=== PATIENT | female | born 1950 | race Caucasian/White ===

== ENCOUNTER 2016-12-03 12:30 | Emergency (ER) | payer BC ==
--- NOTE | 2016-12-03 13:36 | RAD ---
INDICATION: Intracranial injury COMPARISON: CT brain June 26, 2016 TECHNIQUE: Noncontrast axial source images were acquired from the skull base to the vertex. FINDINGS: Ventricles/sulci: The ventricles and cisterns are normal in size and configuration for age. Brain parenchyma: There is no focal parenchymal finding, evidence of intracranial mass, or intracranial mass effect. Intracranial hemorrhage:None. Extra-axial spaces: There are no abnormal extra axial fluid collections or evidence of extra-axial mass. Calvarium: There is no calvarial fracture or other calvarial abnormality. Scalp: There is no evidence of scalp or extracalvarial soft tissue abnormality. Paranasal sinuses/mastoid: The paranasal sinuses and mastoid air cells are clear. Other: None. IMPRESSION: No acute intracranial findings or interval changes.
--- NOTE | 2016-12-03 13:38 | RAD ---
HISTORY: Syncope, trauma COMPARISONS: CTA dated June 26, 2016 TECHNIQUE: Multiple contiguous axial CT scans were obtained of the cervical spine without intravenous contrast, with coronal and sagittal multiplanar reformations. FINDINGS: BRAIN: The visualized brain is unremarkable CENTRAL CANAL: Evaluation of the central canal is limited on CT technique; however, there is no obvious canalicular mass or epidural hemorrhage. ALIGNMENT: There is straightening of the cervical lordosis. VERTEBRAL BODIES: There is multilevel anterolateral marginal osteophyte reformation most now pronounced at C5-C6 and C6-C7. There is no displaced fracture or dislocation. JOINTS: There is mild diffuse uncovertebral and facet hypertrophic change. MUSCULATURE: Unremarkable INTERVERTEBRAL DISCS: There is diffuse loss of intervertebral disc height. AXIAL IMAGES: There is moderate left neural foraminal narrowing at C6-C7. There is no osseous central canal stenosis. SOFT TISSUES: The visualized soft tissues of the neck are unremarkable. The prevertebral fat stripe is preserved. OTHER: None. IMPRESSION: 1. STRAIGHTENING THE CERVICAL LORDOSIS. 2. DEGENERATIVE DISC DISEASE AND OSTEOARTHRITIS. 3. NO ACUTE OSSEOUS INJURY TO THE CERVICAL SPINE
[2016-12-03 15:28] LABS: Hematocrit 43 % (35-47); Hemoglobin 14.2 g/dl (12.0-16.0); Mean Corpuscular HGB Conc 33 g/dl (31-36); Mean Corpuscular Hemoglobin 30 pg (27-31); Mean Corpuscular Volume 91 fL (80-97); Mean Platelet Volume 8 um3 (7.4-10.4); Red Blood Count 4.75 10^6/ul (4.0-5.4); Red Cell Distribution Width 14 % (10.5-15); White Blood Count 8.2 10^3/ul (3.5-10.8)
[2016-12-03 15:42] LABS: Albumin 4.1 g/dL (3.2-5.2); BUN/Creatinine Ratio 14.3 (8-20); Calcium 9.4 mg/dL (8.6-10.3); EGFR African American 79.8 (>60); Globulin 2.5 g/dL (2-4); Potassium 3.8 mmol/L (3.5-5.0); Total Bilirubin 0.3 mg/dL (0.2-1.0); Total Protein 6.6 g/dL (6.4-8.9)
[2016-12-03 16:12] VITALS: BP 99/84
[2016-12-03 17:04] LABS: Urine Bacteria Absent (Absent); Urine Bilirubin Negative (Negative); Urine Glucose Negative (Negative); Urine Nitrite Negative (Negative)
--- NOTE | 2016-12-03 19:02 | ED ---
Da Abbott Adam, scribed for Marija Burks MD on 12/03/16 at 1403 . Syncope/Near Syncope - HPI Summary HPI Summary: Pt is a 66 year old female presenting after an episode of syncope. The pt was on the 2nd floor of a building for an appt with her therapist and she remembers standing at the top of the stairs as she was leaving. The next thing she remembers is being at the bottom of the stairs. She has no memory of falling. She denies any symptoms prior to the episode except that she remembers having some difficulty seeing during the appt because of a "glare." Pt c/o RODRÍGUEZ, generalized myalgia, and feeling "spacey and out of it." She denies any difficulty finding words or confusion about where she is. PMHx of chronic colitis and TIA x2 (involving aphasia and feeling unstable on her feet). She is on Plavix. Negative tobacco/alcohol/drug use. FMHx of HTN, HLD, and [place]. - History Of Current Complaint Chief Complaint: EDSyncope Time Seen by Provider: 12/03/16 13:55 Hx Obtained From: Patient Onset/Duration: Sudden Onset, Lasting Minutes, Resolved Timing: Intermittent Episode Lasting - Minutes Context: Unwitnessed Activity At Onset: Exertion - Beginning to walk down stairs Associated Head Trauma: Yes Aggravating Factor(s): Other - Unknown Alleviating Factor(s): Nothing Associated Signs And Symptoms: AMS - "Out of it", Headache - Allergies/Home Medications Allergies/Adverse Reactions: Allergies Allergy/AdvReac Type Severity Reaction Status Date / Time Cephalosporins Allergy COLITIS Verified 11/04/13 05:46 Penicillins [PCN] Allergy Unknown Verified 06/26/16 13:07 Reaction Details Sulfa Antibiotics Allergy Unknown Verified 06/26/16 13:07 Reaction Details Sulfa Drugs Allergy Hives Verified 11/04/13 05:46 PMH/Surg Hx/FS Hx/Imm Hx Endocrine/Hematology History: Reports: Hx Thyroid Disease Cardiovascular History: Reports: Hx Hypercholesterolemia, Hx Hypertension - ON MEDICATION FOR, Other Cardiovascular Problems/Disorders - REYNAUDS DISEASE Denies: Hx Angina, Hx Pacemaker/ICD Respiratory History: Reports: Hx Sleep Apnea GI History: Reports: Other GI Disorders - Chronic colitis Comment Only: Hx Gastroesophageal Reflux Disease - acid reflux Musculoskeletal History: Reports: Hx Arthritis - HANDS, FEET, KNEES, Hx Bursitis - HIPS AND SHOULDERS, Hx Fibromyalgia Sensory History: Reports: Hx Contacts or Glasses - GLASSES, Hx Glaucoma Denies: Hx Hearing Aid Opthamlomology History: Reports: Hx Contacts or Glasses - GLASSES, Hx Glaucoma Neurological History: Reports: Hx Migraine - 2-3 PER MONTH NOW- STATES GETS BOTOX INJECTIONS Q 3 MONTHS, Hx Transient Ischemic Attacks (TIA) - x2 Psychiatric History: Reports: Hx Anxiety, Hx Depression, Hx Panic Disorder - Cancer History Hx Chemotherapy: No Hx Radiation Therapy: No - Surgical History Surgery Procedure, Year, and Place: KNEE SURGERY-[facility]. TUBAL LIGATION-[facility]. TRIGGER FINGER RELEASE-[facility]. TONSILLECTOMY. WISDOM TEETH EXTRACTED Hx Anesthesia Reactions: Yes - NAUSEA, PATIENT FEELS IS SLOW TO WAKE UP - Immunization History Date of Tetanus Vaccine: utd Date of Influenza Vaccine: none Infectious Disease History: No Infectious Disease History: Denies: Traveled Outside the [place] in Last 30 Days - Family History Known Family History: Positive: Cardiac Disease - [place], Hypertension, Other - HLD - Social History Occupation: Employed Full-time Lives: Alone Alcohol Use: None Hx Substance Use: No Substance Use Type: Reports: None Hx Tobacco Use: No Smoking Status (MU): Never Smoked Tobacco Type: Cigarettes Review of Systems Negative: Fever Positive: Other - Trouble seeing because of a "glare" Positive: Myalgia - Generalized Neurological: Other - Feeling "out of it" Positive: Headache, Syncope All Other Systems Reviewed And Are Negative: Yes Physical Exam Triage Information Reviewed: Yes Vital Signs On Initial Exam: Initial Vitals Temp Pulse Resp BP Pulse Ox 98.4 F 83 18 128/81 100 12/03/16 12:34 12/03/16 12:34 12/03/16 12:34 12/03/16 12:34 12/03/16 12:34 Vital Signs Reviewed: Yes Appearance: Positive: Well-Appearing, No Pain Distress Skin: Positive: Warm, Skin Color Reflects Adequate Perfusion, Dry Eyes: Positive: EOMI, ROBBI ENT: Positive: Pharynx normal, TMs normal Neck: Positive: Supple, Nontender Respiratory/Lung Sounds: Positive: Clear to Auscultation, Breath Sounds Present. Negative: Rales, Rhonchi, Wheezes Cardiovascular: Positive: RRR. Negative: Murmur, Rub Abdomen Description: Positive: Nontender, Soft. Negative: Distended, Guarding Bowel Sounds: Positive: Present Musculoskeletal: Positive: Strength/ROM Intact, Other - Tenderness at C3. Negative: Edema Left, Edema Right Neurological: Positive: Sensory/Motor Intact, Alert, Oriented to Person Place, Time, CN Intact II-III Psychiatric: Positive: Affect/Mood Appropriate Diagnostics - Vital Signs Vital Signs Temp Pulse Resp BP Pulse Ox 12/03/16 13:49 98.8 F 70 20 116/77 97 12/03/16 12:34 98.4 F 83 18 128/81 100 - Laboratory Lab Results: Lab Results 12/03/16 12/03/16 12/03/16 Range/Units 15:12 15:12 16:23 WBC 8.2 (3.5-10.8) 10^3/ul RBC 4.75 (4.0-5.4) 10^6/ul Hgb 14.2 (12.0-16.0) g/dl Hct 43 (35-47) % MCV 91 (80-97) fL MCH 30 (27-31) pg MCHC 33 (31-36) g/dl RDW 14 (10.5-15) % Plt Count 276 (150-450) 10^3/ul MPV 8 (7.4-10.4) um3 Neut % (Auto) 61.6 (38-83) % Lymph % (Auto) 26.5 (25-47) % [place] % (Auto) 8.0 (1-9) % Eos % (Auto) 3.1 (0-6) % Baso % (Auto) 0.8 (0-2) % Absolute Neuts (auto) 5.1 (1.5-7.7) 10^3/ul Absolute Lymphs (auto) 2.2 (1.0-4.8) 10^3/ul Absolute Monos (auto) 0.7 (0-0.8) 10^3/ul Absolute Eos (auto) 0.3 (0-0.6) 10^3/ul Absolute Basos (auto) 0.1 (0-0.2) 10^3/ul Absolute Nucleated RBC 0 10^3/ul Nucleated RBC % 0 Sodium 135 (133-145) mmol/L Potassium 3.8 (3.5-5.0) mmol/L Chloride 101 (101-111) mmol/L Carbon Dioxide 29 (22-32) mmol/L Anion Gap 5 (2-11) mmol/L BUN 13 (6-24) mg/dL Creatinine 0.91 (0.51-0.95) mg/dL Est GFR ( Amer) 79.8 (>60) Est GFR (Non-Af Amer) 62.0 (>60) BUN/Creatinine Ratio 14.3 (8-20) Glucose 92 (70-100) mg/dL Calcium 9.4 (8.6-10.3) mg/dL Total Bilirubin 0.30 (0.2-1.0) mg/dL AST 14 (13-39) U/L ALT 12 (7-52) U/L Alkaline Phosphatase 84 (34-104) U/L Total Protein 6.6 (6.4-8.9) g/dL Albumin 4.1 (3.2-5.2) g/dL Globulin 2.5 (2-4) g/dL Albumin/Globulin Ratio 1.6 (1-3) Urine Color Straw Urine Appearance Clear Urine pH 5.0 (5-9) Ur Specific [place] 1.004 L (1.010-1.030) Urine Protein Negative (Negative) Urine Ketones Negative (Negative) Urine Blood Negative (Negative) Urine Nitrate Negative (Negative) Urine Bilirubin Negative (Negative) Urine Urobilinogen Negative (Negative) Ur Leukocyte Esterase Trace H (Negative) Urine WBC (Auto) Trace(0-5/hpf) (Absent) Urine RBC (Auto) Trace(0-2/hpf) (Absent) Ur Squamous Epith Cells Present H (Absent) Urine Bacteria Absent (Absent) Urine Glucose Negative (Negative) Result Diagrams: 12/03/16 15:12 12/03/16 15:12 Lab Statement: Any lab studies that have been ordered have been reviewed, and results considered in the medical decision making process. - CT CERVICAL SPINE CT Interpretation Completed By: Radiologist - IMPRESSION: 1. STRAIGHTENING THE CERVICAL LORDOSIS. 2. DEGENERATIVE DISC DISEASE AND OSTEOARTHRITIS. 3. NO ACUTE OSSEOUS INJURY TO THE CERVICAL SPINE BRAIN CT Interpretation Completed By: Radiologist - IMPRESSION: NO ACUTE INTRACRANIAL FINDINGS OR INTERVAL CHANGE. - EKG 14:32 Cardiac Rate: NL - 78 BPM EKG Rhythm: Sinus Rhythm - Normal Course/Dx Course Of Treatment: 66 yo female who had either a syncopal episode or a fall down stairs on , she is amnestic to the event but does have concussion symptoms labs and urine ct head and neck negative. - Diagnoses Provider Diagnoses: Concussion Discharge - Discharge Plan Condition: Stable Disposition: HOME Patient Education Materials: Concussion (ED) Referrals: April Villavicencio MD [Primary Care Provider] - Additional Instructions: Follow up with Dr. Villavicencio this week. The documentation as recorded by the Da fairchild Adam accurately reflects the service I personally performed and the decisions made by me, Marija Burks MD.
== END 2016-12-03 16:40 | disposition home or self-care (01) ==
LOC: ED 12:30
DX: S06.0X9A Concussion with loss of consciousness of unspecified duration, initial encounter (principal); R55 Syncope and collapse; R51 Headache; M79.1 Myalgia; W19.XXXA Unspecified fall, initial encounter; Y93.9 Activity, unspecified; Y92.9 Unspecified place or not applicable
CPT/HCPCS: 36415; 70450; 72125; 80053; 81003; 81015; 85025; 87086; 93005; 99282

== ENCOUNTER 2017-06-18 11:47 | Day surgery (SDC) | payer BC ==
[~2017-06-18 11:47] MED LIST: Buffered Lidocaine 0.9% SYRIN* 5 ML/SYR SYRINGE INTRADERM ONE
[2017-06-18] MEDS ORDERED: Buffered Lidocaine 0.9% SYRIN* 5 ML/SYR SYRINGE ONE (11:59)
[2017-06-18] MEDS ORDERED: Midazolam* 1 MG/ML 2 ML VIAL (2 MG) ONE ×2 (14:28→15:23)
[2017-06-18] MEDS ORDERED: fentaNYL* 50 MCG/ML 2 ML VIAL (100 MCG VIAL) ONE (14:28)
[2017-06-18] MEDS ORDERED: Phenylephrine IV* 40 MCG/ML 10 ML SYRINGE ONE (15:51)
[2017-06-18 17:11] VITALS: BP 111/69
--- NOTE | 2017-06-19 02:44 | PRO ---
DATE: 06/18/17 - [facility] REFERRING PHYSICIAN: April Villavicencio * PROCEDURE: Upper gastrointestinal endoscopy, CLOtest, and balloon dilation EG junction through 18 mm with no observed mucosal break (monitored propofol per Dr Almendarez). 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 She will have a sense that something is sticking and drink extra fluid and usually that just seems to build up some pressure. Eventually things will pass, but it takes some considerable waiting. There has been no vomiting. She states this has built up gradually over a year or two. Several years ago, she was having acid indigestion and was placed on pantoprazole with relief of that and has stayed with it. She has been with it right along. She has been on Plavix because of neurologic symptoms attributed to TIAs about a year ago. Dr. Villavicencio has prescribed that. A neurology consult is pending in 1 month. She says liquids generally go down okay, although she references funny sounds that come out. Hiatal hernia was seen on CT scan a couple of years ago. She is on many meds for fibromyalgia and other conditions extending into 4 pages including chronic opioids. ENDOSCOPIST: Dr. Logan MEDICATIONS: Propofol per Dr. Almendarez. FINDINGS: She is a late middle-aged woman in no overt distress. EGD: Larynx - symmetric limited views while under anesthesia. Esophagus - easily entered and the mucosa is normal in the upper and mid esophagus. The lower esophagus has intact mucosa without any erosions, though there is prominent motility and spasm. The EG junction at about 34 to 35 is quite snug. The scope goes through fairly easily and views later on during balloon dissection did not suggest any active inflammation and the area did open up. Stomach - there is a moderate hiatal hernia especially seen in retroflexion with the EG junction snug and without any abnormal mucosa. Mucosa in the lower fundus, body, and antrum was normal. A CLOtest taken gastric greater curvature. Duodenum - the pylorus, bulb, and second through fourth portions were normal apart from a sizeable duodenal diverticulum. During withdrawal, scope was positioned at the EG junction and through the scope , dilator placed in the gastric fundus. It was withdrawn across the EG junction at 34 to 35 and inflated to 15, then 16.5 and finally 18 mm, each monitoring to assess the effect on the mucosa. No split was observed. The dilator was pulled out a few centimeters more, possibly to the 30 cm mary and inflations repeated the same effect. Some passive stretch on the distal esophagus and EG junction was seen. Withdrawal through the upper esophagus did show some stretch at the upper sphincter. IMPRESSION: 1. [id number] hiatal hernia. Addendum: Clotest negative 2. Clinical GERD - continue pantoprazole, though the patient says nothing particular happens if she forgets a single day. 3. Duodenal diverticulum. 4. EG junction narrowing and stricture - dilated to 18 mm. Question of an independent motility process is raised. Further testing and possibility of a more aggressive dilation to 20 mm or Ham dilators is considered but will await the result of this days stretching and the patient will be asked to return to the office after her neurology appointment when the status of her possible cerebrovascular condition is known. [id number]/[facility] #: [id number] NAHOMY
== END 2017-06-18 17:00 | disposition home or self-care (01) ==
LOC: OR 11:47 → ENDO 11:47
PROVIDERS: ATTEND Internal Medicine Gastroenterology
DX: K22.2 Esophageal obstruction (principal); K44.9 Diaphragmatic hernia without obstruction or gangrene; K21.9 Gastro-esophageal reflux disease without esophagitis; K57.10 Diverticulosis of small intestine without perforation or abscess without bleeding; M79.7 Fibromyalgia; G47.33 Obstructive sleep apnea (adult) (pediatric); I10 Essential (primary) hypertension; J45.909 Unspecified asthma, uncomplicated; Z79.02 Long term (current) use of antithrombotics/antiplatelets; Z86.73 Personal history of transient ischemic attack (TIA), and cerebral infarction without residual deficits
CPT/HCPCS: 87077; J2250; J3010

== ENCOUNTER 2018-04-22 09:24 | Observation (INO) | payer BC ==
--- NOTE | 2018-04-01 06:37 | HP ---
CC: Dr. April Villavicencio; Dr. Arden Logan; Dr. Adriano Chavarria; Dr. Kobe Guillory, Cardiology * ADMISSION HISTORY AND PHYSICAL: DATE OF ADMISSION: 04/22/18 ATTENDING PHYSICIAN: Dru Anton MD * (DICTATED BY ANTHONY CALLAWAY) CHIEF COMPLAINT: Paraesophageal hernia with reflux. HISTORY OF PRESENT ILLNESS: This is a 67-year-old female with multiple medical problems, who has experienced reflux symptoms for many years. She states that last year, she was evaluated with a chest x-ray and at that time, findings included significant hiatal hernia. She underwent subsequent EGD with Dr. Logan in June 2017, which confirmed the presence of a moderately large hiatal hernia. In recent months, she has had increased symptoms of dysphagia occasionally associated with regurgitation. This seems to be particularly after solid food. Most of the time, she is able to tolerate liquids well. She denies any significant weight loss, though her chart history does indicate approximately 4-pound weight loss in the past 6 months. An esophagogram was done on 03/07/18 showing a large fixed paraesophageal hiatal hernia with extrinsic compression of the distal esophagus. She was seen in the office by Dr. Anton on 03/20/18. He has reviewed her studies and recommended surgery. She understands the indications, risks, benefits, and alternatives of surgery as well as the expected perioperative course. She would like to proceed as scheduled with laparoscopic repair of paraesophageal hiatal hernia with fundoplication. PAST MEDICAL HISTORY: Hypertension, hyperlipidemia, TIA (2016), obstructive sleep apnea (she uses an oral mouthpiece). She is also treated for hypersomnia. She has a history of colitis (she has one episode of C. difficile colitis following a full course of an oral cephalosporin; that resolved with standard treatment. She has had subsequent episodes of colitis which had been negative for C. diff and negative for ulcerative colitis). She has fibromyalgia and chronic pain. She is treated for glaucoma, allergic rhinitis and GERD as noted above. She has had a history of tachycardia and had a LINQ implant in 2016, which is monitored by Dr. Guillory. PAST SURGICAL HISTORY: Previous surgeries include cardiac event recorder as noted above, tonsillectomy, and tubal ligation remotely, right knee arthroscopy , and right index trigger finger release. No reported surgical or anesthesia complications. CURRENT MEDICATIONS: 1. Protonix 40 mg b.i.d. 2. Nifedipine XL 90 mg once daily. 3. Lisinopril 20 mg once daily. 4. Xyzal 5 mg daily p.r.n. for allergies. 5. Neurontin 300 mg q.a.m., 900 mg q.p.m. 6. Armodafinil 150 mg daily. 7. Hydromorphone extended release 12 mg once daily. 8. Xalatan ophthalmic drops 0.005% one drop each eye once daily. 9. Cymbalta 60 mg b.i.d. 10. Vitamin B12 injection monthly. 11. Lipitor 80 mg once daily. 12. Wellbutrin SR 150 mg once daily. 13. Zanaflex 2 mg 1 to 2 tablets p.r.n. for muscle spasm. 14. Plavix 75 mg once daily (the patient is instructed to hold preoperatively, her last dose being 04/09/18. She will convert to aspirin 325 mg daily, which she will continue perioperatively). 15. Vitamin D 1000 International Units 2 to 3 tablets once daily. 16. Oxymorphone 10 mg q.i.d. p.r.n. pain (typically uses 1 to 2 times per day). 17. Clonazepam 1 mg q.h.s. and daily p.r.n. anxiety. ALLERGIES: Drug allergies: PENICILLIN and SULFA, both have caused rash. CEPHALOSPORIN related to C. diff as noted above. FAMILY HISTORY: Negative for anesthesia problems, bleeding, or clotting disorders. SOCIAL HISTORY: The patient lives with her son. She works as a respiratory assistant with special education students. She is off for the summer break at present. She is a former smoker of approximately 2 cigarettes per day and quit 3 years ago. She drinks less or equal to 1 to 2 drinks per month. She denies any other recreational drug use. REVIEW OF SYSTEMS: General: No recent constitutional symptoms or acute illnesses other than described in the HPI. Eyes: Treated for glaucoma. No recent changes. Ears, Nose, Throat: No problems reported. See also results for esophagogram. Cardiovascular: No recent chest pain, palpitations. No history of heart murmur. Followed by Dr. Guillory. She does have an event monitor implanted. Respiratory: No history of asthma, chronic cough, or shortness of breath. Smoking history as noted. Obstructive sleep apnea with hypersomnia. GI: See above per HPI. Colonoscopy last done around 3 years ago which she states was a normal study. : No problems reported. Endocrine: No diabetes or thyroid dysfunction. Musculoskeletal: Chronic pain and fibromyalgia followed by Dr. Adriano Chavarria for pain management. Neuro/Psych: Chronic pain, history of anxiety and depression, insomnia. PHYSICAL EXAMINATION GENERAL: Well-nourished, well-developed female, in no acute distress. VITAL SIGNS: Height 64 inches, weight 152 pounds. Temperature 97.9, blood pressure 134/76, pulse regular. HEENT: Pupils equal, round, and reactive. EOMs intact. No conjunctival pallor. Oropharynx: Teeth in [id number] repair. No intraoral lesions. NECK: No carotid bruits noted. No thyromegaly, lymphadenopathy, or masses. LUNGS: Clear to auscultation. No rales or wheezes. HEART: Regular rate and rhythm. No murmur appreciated. There is an event monitor in the left upper chest subcutaneously. ABDOMEN: Soft, nondistended, nontender to palpation. No palpable masses or organomegaly. GENITALIA: Not done. RECTAL: Not done. BACK: No spinous process or CVA tenderness. EXTREMITIES: No edema. NEUROLOGICAL: Grossly intact. SKIN: Warm and dry. No suspicious rashes or lesions. IMPRESSION: Paraesophageal hiatal hernia with reflux. PLAN: Laparoscopic repair of paraesophageal hernia with fundoplication. ANTHONY CALLAWAY [id number]/[facility] #: [id number] NAHOMY
[~2018-04-22 09:24] MED LIST changes: +Atracurium* 10 MG/ML 10 ML VIAL ONE; +Dexamethasone TAB* 4 MG PO ONE; +DiMENhydriNATE IV* 50 MG/ML VIAL IV PUSH PRN; +Famotidine IV* 10 MG/ML 2 ML (20 mg) IV ONE; +KETAMINE HCL* 50 MG/ML 10 ML VIAL ONE; +Midazolam* 1 MG/ML 5 ML VIAL (5 MG) ONE; +Naloxone* 0.4 MG/ML 1 ML VIAL IV PRN; +Ondansetron TAB* 4 MG PO ONE; +PROCHLORPERAZINE INJ 5 MG/ML 2 ML VIAL IV PRN; +fentaNYL* 50 MCG/ML 2 ML VIAL (100 MCG VIAL) ONE
[2018-04-22] MEDS ORDERED: ceFAZolin 2 GM PREMIX (*) 2 GM/50 ML BAG IVPB ONE (09:43)
[2018-04-22] MEDS ORDERED: Ondansetron ODT TAB* 4 MG ONE (09:43)
[2018-04-22] MEDS ORDERED: Dexamethasone TAB* 4 MG ONE (09:43)
[2018-04-22] MEDS ORDERED: Famotidine IV* 10 MG/ML 2 ML (20 mg) ONE (09:43)
[2018-04-22] MEDS ORDERED: Heparin VIAL(*) 5000 UNITS/ML VIAL (FIVE THOUSAND) ONE (09:43)
[2018-04-22] MEDS ORDERED: ROPIVACAINE 5 MG/ML 30 ML BTL (0.5%) ONE (13:01)
[2018-04-22] MEDS ORDERED: PROCHLORPERAZINE INJ 5 MG/ML 2 ML VIAL ONE (13:46)
[2018-04-22] MEDS ORDERED: Neostigmine Methylsulfate* 1 MG/ML 10 ML VIAL (1 mg/ml) ONE (13:46)
[2018-04-22] MEDS ORDERED: Propofol* 10 MG/ML 20 ML BTL IV PUSH ONE (13:46)
[2018-04-22] MEDS ORDERED: Glycopyrrolate IV* 0.2 MG/ML 1 ML VIAL ONE (13:46)
[2018-04-22] MEDS ORDERED: Lidocaine 2% PF * 5 ML VIAL ONE (13:46)
[2018-04-22] MEDS ORDERED: Morphine VIAL* 10 MG/ML 1 ML VIAL ONE (14:50)
[2018-04-22] MEDS ORDERED: Metoprolol Tartrate IV* 1 MG/ML 5 ML VIAL ONE (15:05)
[2018-04-22] MEDS ORDERED: Labetalol IV* 5 MG/ML 20 ML VIAL ONE (15:05)
[2018-04-22] MEDS ORDERED: Ondansetron INJ* 2 MG/ML VIAL IV PRN (15:18)
[2018-04-22] MEDS ORDERED: Albuterol HFA INHALER* 8 gm MDI INH PRN (15:22)
[2018-04-22] MEDS ORDERED: clonazePAM TAB(*) 1 MG PO PRN (15:22)
[2018-04-22] MEDS ORDERED: ARMODAFINIL 250 MG PO PRN (15:22)
--- NOTE | 2018-04-22 15:25 | OP ---
Operative Report - Blank - Operative Report Date of Operation: 04/22/18 Note: Brief Operative Note Preoperative Dx: paraesophageal hiatal hernia. Postoperative Dx: same. Procedure: paraesophageal hiatal hernia repair with fundoplication. Anesthesia: GET. Surgeon: Desean. Assist: MD Pepper and RENE Jamil. EBL: 100 ml. Specimen: none. Fluids: 1800 ml LR. Drains: none. Findings: Dictated.
[2018-04-22] MEDS ORDERED: fentaNYL* 50 MCG/ML 2 ML VIAL (100 MCG VIAL) ONE (15:33)
[2018-04-22] MEDS: fentaNYL* 50 MCG/ML 2 ML VIAL (100 MCG VIAL) IV PRN ×2 (15:37→15:44)
[2018-04-22] MEDS ORDERED: Ondansetron INJ* 2 MG/ML VIAL ONE (15:46)
[2018-04-22] MEDS ORDERED: Morphine INJ* 2 MG/ML 1 ML SYRINGE (TWO MG - NEW SYRINGE VERSION) ONE ×2 (15:48→15:57)
[2018-04-22] MEDS: Morphine INJ* 2 MG/ML 1 ML SYRINGE (TWO MG - NEW SYRINGE VERSION) IV PRN ×2 (15:48→15:58)
[2018-04-22] MEDS ORDERED: HYDROcodone/ACET. 7.5/325 LIQ* 15 ML UDC ONE (17:23)
[2018-04-22] MEDS: HYDROcodone/ACET. 7.5/325 LIQ* 15 ML UDC PO PRN (17:24)
[2018-04-22] MEDS: DULoxetine DR CAP* 60 MG CAP.DR PO SCH (20:09)
[2018-04-22] MEDS: Oxymorphone IR (NF) 5 MG TAB PO PRN (20:09)
[2018-04-22] MEDS: Gabapentin CAP(*) 300 MG PO SCH ×2 (20:10→20:36)
[2018-04-22] MEDS ORDERED: Latanoprost 0.005%* 2.5 ml BTL BOTH EYES SCH (21:00)
[2018-04-23] MEDS: HYDROcodone/ACET. 7.5/325 LIQ* 15 ML UDC PO PRN ×2 (01:50→08:00)
--- NOTE | 2018-04-23 02:17 | OP ---
CC: Dr. April Villavicencio; Dr. Arden Logan* OPERATIVE REPORT: DATE OF OPERATION: 04/22/18 - Inpatient, SSU [id number] DATE OF : 52 SURGEON: Dru Anton MD MEDICAL FILE CLERK: Dr. Pabon. ANESTHESIOLOGIST: Dr. Ramirez. ANESTHESIA: General endotracheal. PRE-OP DIAGNOSIS: Paraesophageal hernia. POST-OP DIAGNOSIS: Paraesophageal hernia. OPERATIVE PROCEDURE: Laparoscopic repair of paraesophageal hernia with Franki fundoplication. ESTIMATED BLOOD LOSS: Less than 20 mL. IV FLUIDS: 1.8 liter crystalloid. SPECIMENS: None. DRAINS: None. COMPLICATIONS: None. COUNTS: Instrument, needle, and sponge counts correct. DESCRIPTION OF PROCEDURE: The patient was brought to the operating room and placed on the table supine. Sequential compression devices were placed on both lower extremities. General anesthesia was administered. Benitez catheter was placed. She was positioned and padded appropriately. She received intravenous antibiotics. She was prepped and draped in the usual sterile fashion. Time-out was performed. Local anesthetic was infiltrated into the skin and soft tissue prior to making each incision. Entry into the abdomen was through a transumbilical vertical incision using an open technique. After accessing the peritoneal cavity, a 5 mm optical trocar was placed and carbon-dioxide was insufflated to a pressure of 15 mmHg. Under direct visualization, 5 mm trocar was placed in the left upper quadrant laterally, right upper quadrant medially, and a 12 mm trocar was placed in the left upper quadrant medially. A Anderson liver retractor was placed percutaneously in the subxiphoid position and used to elevate the left lobe of the liver. The hiatus was visualized. The stomach was herniated through this for about half the stomach. [id number] atraumatic graspers were used to reduce the stomach and then adhesions to the left francis of the diaphragm were divided with a use of LigaSure. The upper short gastric vessels were divided with LigaSure. The left francis of the diaphragm was identified and the hernia sac was elevated and dissected free. The sac was divided across the diaphragmatic opening from left to right. The dissection then proceeded on the right side opening the pars flaccida down to the right francis of the diaphragm and the dissection proceeded from this point across to meet the pervious dissection. The mediastinum was entered and the hernia sac was reduced. The esophagus was identified and blunt dissection was used in a retroesophageal window and a 0.25 inch [place] drain was then placed to encircle the esophagus and secure with a 0 Vicryl Endoloop. This Mignon was then used to retract the esophagus for the remainder of the dissection. The retroesophageal attachments to the hiatus were dissected free with LigaSure. The dissection then proceeded up into the mediastinum, identifying and preserving the vagus nerves and the pleura on each side. The dissection of the esophagus proceeded circumferentially to mobilize an adequate amount of intraabdominal esophageal length about 4 to 5 cm. Subsequently, the defect was repaired with 0 Ethibond suture using simple sutures and the closure was performed over a 56-Vincentian bougie. Lastly a 360-degree Souleymane-type fundoplication was performed again over a 56-Vincentian bougie. A short floppy wrap was created using only 2 sutures of 0 Ethibond with the upper suture purchasing the esophageal wall. After removing the bougie and assuring hemostasis, the ports were removed under direct visualization. The 12 mm port site was closed with a 0-Vicryl using the Endo Close. The remaining ports were removed under direct visualization. Carbon- dioxide was released. Skin incisions were closed with 4-0 Monocryl in subcuticular fashion. Steri-Strips were applied to all the sites. The patient tolerated the procedure well. She was extubated and transferred to the recovery room in stable condition. [id number]/[facility] #: [id number] NAHOMY
[2018-04-23] MEDS: HYDROmorphone INJ* 0.5 MG/0.5 ML SYRINGE IV PRN ×2 (03:18→08:00)
[2018-04-23] MEDS ORDERED: Heparin VIAL(*) 5000 UNITS/ML VIAL (FIVE THOUSAND) SUBCUT SCH (06:00)
[2018-04-23] MEDS: Oxymorphone IR (NF) 5 MG TAB PO PRN (06:39)
[2018-04-23 07:51] VITALS: BP 129/68
--- NOTE | 2018-04-23 07:58 | PN ---
Progress Note - Progress Note Date of Service: 04/23/18 SOAP: Subjective: She reports she had a rough night with pain in shoulders and nausea. Tolerating water po. Objective: Vital Signs Temp 98.6 F 04/23/18 03:27 Pulse 88 04/23/18 03:27 Resp 16 04/23/18 06:39 BP 129/61 04/23/18 03:27 Pulse Ox 97 04/23/18 03:27 Gen: NAD. Abd: incisions c/d/i ecchymosis; mildly distended and tender. Intake & Output 04/22/18 04/23/18 04/23/18 18:59 06:59 18:59 Intake Total 2250 1520 Output Total 200 850 Balance 205 670 Weight 157 lb Intake: IV Fluids 2250 980 LR 2250 980 Oral 540 Output: Urine 850 Benitez 100 Estimated Blood Loss 100 Other: Estimated Void Medium # Bowel Movements 0 Assessment: POD#1 s/p Lap PEHR/Franki. Doing well Plan: Home today.
[2018-04-23] MEDS ORDERED: Cetirizine* 10 MG TAB PO SCH (09:00)
[2018-04-23] MEDS ORDERED: buPROPion SR TAB.SR* 150 MG PO SCH (09:00)
[2018-04-23] MEDS ORDERED: Lisinopril TAB* 10 MG PO SCH (09:00)
[2018-04-23] MEDS ORDERED: Gabapentin CAP(*) 300 MG PO SCH (09:00)
[2018-04-23] MEDS ORDERED: Hydromorphone ER TAB(NF) 16 MG TAB PO SCH (09:00)
[2018-04-23] MEDS ORDERED: Atorvastatin* 80 MG TAB PO SCH (09:00)
[2018-04-23] MEDS ORDERED: NIFEdipine ER TAB* 30 MG PO SCH (09:00)
[2018-04-23] MEDS: DULoxetine DR CAP* 60 MG CAP.DR PO SCH (09:57)
--- NOTE | 2018-04-23 15:14 | DS ---
Amended report to enter cosigning physician. CC: Dr. Anton; Dr. April Villavicencio; Dr. Adriano Chavarria* DISCHARGE SUMMARY: DATE OF ADMISSION: 04/22/18 DATE OF DISCHARGE: 04/23/18 ATTENDING PHYSICIAN: Dr. Dru Anton* (dictated by Mica Bejarano NP). HOSPITAL COURSE: Please refer to admission history and physical for admission details. The patient has a history of a moderately large hiatal hernia associated with dysphagia and occasional regurgitation. She has multiple medical problems including chronic pain and fibromyalgia followed in the pain clinic by Dr. Chavarria. The patient was taken to the operating room on 04/22/18, and underwent laparoscopic repair of a paraesophageal hernia with Franki fundoplication. She has had pain management issues overnight; she has been tolerating clear liquids and denies any nausea. She has been up walking and has voided large amounts. As of this morning, she has better pain control. PHYSICAL EXAMINATION: Vital signs: Temperature 97.9, heart rate 83, respiratory rate 18, O2 saturation on room air 98%, blood pressure 120/68. Lungs: Breath sounds bilaterally clear and equal. Heart: Regular rate and rhythm. Abdomen: Laparoscopic incision sites intact with surrounding ecchymosis , no erythema. Abdomen is mildly distended and tender. Bowel sounds are present. The patient was examined by Dr. Anton and myself. IMPRESSION: Stable status post laparoscopic paraesophageal hernia repair with Franki fundoplication. PLAN: Discharge home today; she will resume her usual medications; she has analgesics at home. She will follow the prescribed dietary guidelines and she has a followup appointment with Dr. Anton, 05/01/18. All of her questions were answered and she knows to call with any concerns. HENRIQUE BEJARANO NP [id number]/[facility] #: [id number] NAHOMY
== END 2018-04-23 10:35 | disposition home or self-care (01) ==
LOC: OR 09:24 → SSU 17:51
PROVIDERS: ADMIT Surgery; ATTEND Surgery
DX: K44.9 Diaphragmatic hernia without obstruction or gangrene (principal); I10 Essential (primary) hypertension; M25.511 Pain in right shoulder; R11.0 Nausea; Z86.73 Personal history of transient ischemic attack (TIA), and cerebral infarction without residual deficits; G47.33 Obstructive sleep apnea (adult) (pediatric); E78.5 Hyperlipidemia, unspecified; G47.10 Hypersomnia, unspecified
CPT/HCPCS: 96374; A9270-GY; G0378; J0690; J0780; J1170; J1644; J2250; J2270; J2405; J2704; J2710; J2795; J3010; J3490; J8540